=== PATIENT | female | born 1940 | race Caucasian/White ===

== ENCOUNTER → 2018-09-19 | Outpatient (CLI) | payer OTHER | END | disposition home or self-care (01) | LOC: PCVCCLINIC 10:00 | PROVIDERS: ATTEND Internal Medicine | DX: I44.7 Left bundle-branch block, unspecified (principal); E78.5 Hyperlipidemia, unspecified; R94.31 Abnormal electrocardiogram [ECG] [EKG] | CPT/HCPCS: 80061; 93005; G0463 ==

== ENCOUNTER → 2018-09-27 | Outpatient (CLI) | payer OTHER ==
[~2018-09-27] MED LIST: REGADENOSON 0.4 MG/5 ML DISP.SYRIN. IV ONE
--- NOTE | 2018-09-27 09:08 | PCVCIMAG ---
APPROVED REPORT Study performed: 09/27/2018 08:00:15 EXAM: Comprehensive 2D, Doppler, and color-flow Echocardiogram Patient Location: Echo lab Status: routine BSA: 1.63 HR: 64 bpmBP: 142/80 mmHg Rhythm: LBBB Other Information Study Quality: Adequate Indications Abnormal ECG Pre-Op LBBB 2D Dimensions IVSd: 11.23 (7-11mm) LVDd: 50.93 mm PWd: 9.71 (7-11mm) LVDs: 39.80 (25-40mm) Left Atrium: 30.54 (27-40mm) Aortic Root: 30.34 mm LV Single Plane 4CH: 30.46 % LV Single Plane 2CH: 30.13 % Biplane EF: 30.6 % Volumes Left Atrial Volume (Systole) Single Plane 4CH: 40.21 mLSingle Plane 2CH: 66.89 mL LA ESV Index: 33.00 mL/m2 Aortic Valve AoV Peak Chung.: 1.22 m/s AO Peak Gr.: 5.95 mmHgLVOT Max P.41 mmHg LVOT Max V: 0.78 m/s Mitral Valve E/A Ratio: 0.5 MV Decel. Time: 261.63 ms MV E Max Chung.: 0.57 m/s MV A Chung.: 1.05 m/s IVRT: 223.18 ms Pulmonary Valve PV Peak Chung.: 0.64 m/sPV Peak Gr.: 1.64 mmHg Pulmonary Vein P Vein S: 0.24 m/sP Vein A: 0.24 m/s P Vein D: 0.35 m/sP Vein A Dur.: 121.1 msec P Vein S/D Ratio: 0.69 Tricuspid Valve TR Peak Chung.: 2.42 m/s TR Peak Gr.: 23.38 mmHg Left Ventricle The left ventricle is normal size. There is normal LV segmental wall motion. There is normal left ventricular wall thickness. Left ventricular ejection fraction is severely decreased globally. Discordant septal motion probably from LBBB LVEF 30%. Grade I - abnormal relaxation pattern. Right Ventricle The right ventricle is normal size. The right ventricular systolic function is normal. Atria The left atrium size is normal. The right atrium size is normal. Aortic Valve The aortic valve is normal in structure, trileaflet No aortic regurgitation. There is no aortic valvular stenosis. Mitral Valve The mitral valve is normal in structure. Moderate mitral regurgitation. No evidence of mitral valve stenosis. Tricuspid Valve The tricuspid valve is normal in structure. Mild tricuspid regurgitation with PAP of 30 mmHg. Pulmonic Valve The pulmonary valve is normal in structure. Mild pulmonic regurgitation. Great Vessels The aortic root is normal in size. IVC is normal in size and collapses >50% with inspiration. Pericardium There is no pericardial effusion. There is no pleural effusion. <Conclusion> Left ventricular ejection fraction is severely decreased globally. Discordant septal motion probably from LBBB LVEF 30%. Mild diastolic dysfunction The aortic valve is normal in structure, trileaflet No aortic regurgitation or stenosis The mitral valve is normal in structure. Moderate mitral regurgitation. Mild tricuspid regurgitation with pulmonary artery pressure of 30 mmHg. There is no pericardial effusion.
--- NOTE | 2018-09-27 13:15 | PCVCIMAG ---
APPROVED REPORT Imaging Protocol: Rest Tc-99m/Stress Tc-99m 1 day Study performed: 09/27/2018 09:19:04 Indication: Dyspnea, Pre-Operative CV evaluation - knee replacement Patient Location: Out-Patient Stress Nurse: Tiffany Turpin RN [place] Tech:Elvia Lynrebecca [facility] Ht: 5 ft 2 in Wt: 138 lbs BSA: 1.63 m2 HR: 75 bpm BP: 183/73 mmHg BMI: 25.2 Medical History Medical History: Hyperlipidemia Medications: Atorvastatin, levothyroxine Allergies: No known drug allergies Cardiac Risk Factors: Age Pretest Chest Pain Characteristics: No chest pain Resting Data Rest SPECT myocardial perfusion imaging was performed in supine position 45 minutes following the intravenous injection of 10 mCi of Tc-99m Sestamibi. Time of rest injection: 844 Date: 09/27/2018 Administration Route: IV Administration Site: Right AC Pharmacologic Stress Pharmacologic stress test was performed by injecting Regadenoson 0.4 mg IV push over 10-15 seconds immediately followed by the intravenous injection of 31.7 mCi of Tc-99m Sestamibi. Time of stress injection: 949 Date: 09/27/2018 Administration Route: IV Administration Site: Right AC Gated Stress SPECT was performed 45 minutes after stress injection. The images were gated to evaluate regional wall motion and calculate left ventricular ejection fraction. Stress Test Details Stress Test: Pharmacologic stress testing performed using 0.4 mg of regadenoson per 5 mL given IV over 10 seconds. Reason for pharmacologic stress test: physical limitation, pending knee replacement. HRMax Heart Rate (APMHR): 143 bpm Resting HR: 75 bpmTarget HR (85% APMHR): 121 bpm Max HR Achieved: 100 bpm % of APMHR: 69 Recovery HR: 86 bpm BP Resting BP: 183/73 mmHg Recovery BP: 161/71 mmHg ECG Resting ECG: SR with L BBB Stress ECG: SR with L BBB ST Change: Nondiagnostic V-pacing or LBBB Arrhythmia: VPC's Recovery ECG: SR with L BBB Recovery ST Change: Nondiagnostic V-pacing or LBBB Recovery Arrhythmia: None Clinical Reason for Termination: Completed protocol Stress Symptoms: None Exercise duration: 0 min 55 sec Stress ECG Conclusion Clinical: Non-ischemic Non-diagnostic electrocardiogram due to underlying left bundle branch block Study Quality Study: Good Study Data Post stress, the left ventricular ejection was 28%.. SSS: 4 SRS: 5 SDS: 0 TID = 1.00. Perfusion No evidence of stress induced ischemia or prior myocardial infarction. Wall Motion Mild chamber dilatation. Moderately severe decreased left ventricular systolic function. Nuclear Conclusion No evidence of stress induced ischemia or prior myocardial infarction. Post stress, the left ventricular ejection was 28%. No prior study available for comparison. Interpreted by: Jan Lu MD Electronically Approved: 09/27/2018 11:13:23 <Conclusion> Clinical: Non-ischemic Non-diagnostic electrocardiogram due to underlying left bundle branch block
== END | disposition home or self-care (01) ==
LOC: PCVCIMAG 07:49
PROVIDERS: ATTEND Internal Medicine
DX: I08.1 Rheumatic disorders of both mitral and tricuspid valves (principal); I44.7 Left bundle-branch block, unspecified; R94.31 Abnormal electrocardiogram [ECG] [EKG]; R06.09 Other forms of dyspnea
CPT/HCPCS: 78452; 93017; 93306; A9500; J2785

== ENCOUNTER → 2018-12-05 | Outpatient (CLI) | payer OTHER ==
--- NOTE | 2018-12-05 14:16 | PCVCIMAG ---
APPROVED REPORT Study performed: 12/05/2018 13:08:02 EXAM: Comprehensive 2D, Doppler, and color-flow Echocardiogram Patient Location: Echo lab Status: routine BSA: 1.63 HR: 65 bpmBP: 122/80 mmHg Rhythm: NSR Other Information Study Quality: Good Risk Factors: Cardiac Risk Factors: Hyperlipidemia Indications LBBB 2D Dimensions IVSd: 9.96 (7-11mm)LVOT Diam: 19.93 (18-24mm) LVDd: 49.04 mm PWd: 8.26 (7-11mm)Ascending Ao: 29.14 (22-36mm) LVDs: 39.77 (25-40mm) Left Atrium: 30.72 (27-40mm) Aortic Root: 26.78 mm LV Single Plane 4CH: 38.91 % LV Single Plane 2CH: 50.25 % Biplane EF: 41.8 % Volumes Left Atrial Volume (Systole) Single Plane 4CH: 31.32 mLSingle Plane 2CH: 38.61 mL Aortic Valve AoV Peak Chung.: 1.50 m/s AO Peak Gr.: 8.96 mmHgLVOT Max P.36 mmHg LVOT Max V: 0.92 m/s MARLENE Vmax: 1.91 cm2 Mitral Valve E/A Ratio: 0.5 MV Decel. Time: 163.36 ms MV E Max Chung.: 0.69 m/s MV A Chung.: 1.30 m/s TDI E/Lateral E': 17.25E/Medial E': 7.67 Medial E' Chung.: 0.09 m/s Lateral E' Chung.: 0.04 m/s Pulmonary Valve PV Peak Gr.: 2.09 mmHg Pulmonary Vein P Vein S: 0.50 m/sP Vein A: 0.32 m/s P Vein D: 0.33 m/sP Vein A Dur.: 117.6 msec P Vein S/D Ratio: 1.52 Tricuspid Valve TR Peak Chung.: 2.57 m/s TR Peak Gr.: 26.48 mmHg Left Ventricle The left ventricle is normal size. There is global hypokinesis of the left ventricle. There is normal left ventricular wall thickness. Left ventricular systolic function is moderate to severely decreased. Discordant septal motion consistent with left bundle branch block LVEF is 30-35%. Mild diastolic dysfunction is present (impaired relaxation pattern). Right Ventricle The right ventricle is normal size. The right ventricular systolic function is normal. Atria The left atrium size is normal. The right atrium size is normal. Aortic Valve The aortic valve is normal in structure. No aortic regurgitation. There is no aortic valvular stenosis. Mitral Valve The mitral valve is normal in structure. There is no mitral valve regurgitation noted. No evidence of mitral valve stenosis. Tricuspid Valve The tricuspid valve is normal in structure. Mild tricuspid regurgitation. Pulmonary artery pressure is 34mmHg. Pulmonic Valve The pulmonary valve is normal in structure. There is no pulmonic valvular regurgitation. Great Vessels The aortic root is normal in size. IVC is normal in size and collapses >50% with inspiration. Pericardium There is no pericardial effusion. <Conclusion> Left ventricular systolic function is moderate to severely decreased. Discordant septal motion consistent with left bundle branch block LVEF is 30-35%. Mild diastolic dysfunction is present (impaired relaxation pattern). The aortic valve is normal in structure. No aortic regurgitation or stenosis. The mitral valve is normal in structure. No mitral valve regurgitation. Mild tricuspid regurgitation. Pulmonary artery pressure is 34mmHg. There is no pericardial effusion.
== END | disposition home or self-care (01) ==
LOC: PCVCIMAG 12:57
PROVIDERS: ATTEND Internal Medicine
DX: Z01.818 Encounter for other preprocedural examination (principal); I07.1 Rheumatic tricuspid insufficiency; I44.7 Left bundle-branch block, unspecified; I10 Essential (primary) hypertension; E78.5 Hyperlipidemia, unspecified
CPT/HCPCS: 93306

== ENCOUNTER → 2019-01-03 | Outpatient (CLI) | payer OTHER ==
--- NOTE | 2019-01-03 10:37 | PCVCIMAG ---
APPROVED REPORT Study performed: 01/03/2019 08:51:15 EXAM: Comprehensive 2D, Doppler, and color-flow Echocardiogram Patient Location: Echo lab Status: routine BSA: 1.62 HR: 62 bpmBP: 134/80 mmHg Rhythm: NSR Other Information Study Quality: Adequate Indications Dyspnea Cardiomyopathy LBBB 2D Dimensions IVSd: 7.49 (7-11mm)LVOT Diam: 24.01 (18-24mm) LVDd: 58.76 mm PWd: 7.62 (7-11mm)Ascending Ao: 30.23 (22-36mm) LVDs: 46.55 (25-40mm) Left Atrium: 30.40 (27-40mm) Aortic Root: 26.53 mm LV Single Plane 4CH: 31.57 % LV Single Plane 2CH: 31.55 % Biplane EF: 32.0 % Volumes Left Atrial Volume (Systole) Single Plane 4CH: 42.45 mLSingle Plane 2CH: 42.45 mL LA ESV Index: 22.00 mL/m2 Aortic Valve AoV Peak Chung.: 1.16 m/s AO Peak Gr.: 5.41 mmHg Mitral Valve E/A Ratio: 0.5 MV Decel. Time: 159.40 ms MV E Max Chung.: 0.50 m/s MV A Chung.: 1.04 m/s IVRT: 133.79 ms TDI E/Lateral E': 7.14E/Medial E': 8.33 Medial E' Chung.: 0.06 m/s Lateral E' Chung.: 0.07 m/s Pulmonary Valve PV Peak Gr.: 1.60 mmHg Pulmonary Vein P Vein S: 0.45 m/sP Vein A: 0.28 m/s P Vein D: 0.31 m/sP Vein A Dur.: 121.1 msec P Vein S/D Ratio: 1.45 Tricuspid Valve TR Peak Chung.: 2.29 m/s TR Peak Gr.: 20.94 mmHg Left Ventricle Left ventricle is dilated. There is global hypokinesis of the left ventricle. There is normal left ventricular wall thickness. Left ventricular systolic function is moderate to severely decreased. LVEF is 30-35%. Grade I - abnormal relaxation pattern. Right Ventricle The right ventricle is normal size. The right ventricular systolic function is normal. Atria The left atrium size is normal. The right atrium size is normal. Aortic Valve The aortic valve is normal in structure. No aortic regurgitation is present. There is no aortic valvular stenosis. Mitral Valve The mitral valve is normal in structure. Mild mitral regurgitation. No evidence of mitral valve stenosis. Tricuspid Valve The tricuspid valve is normal in structure. Trace tricuspid regurgitation. Pulmonary artery pressure 28mmHg. Pulmonic Valve The pulmonary valve is normal in structure. There is no pulmonic valvular regurgitation. Great Vessels The aortic root is normal in size. IVC is normal in size and collapses >50% with inspiration. Pericardium There is no pericardial effusion. <Conclusion> Left ventricular systolic function is moderate to severely decreased. There is global hypokinesis of the left ventricle. LVEF is 30-35%. Mild diastolic dysfunction The aortic valve is normal in structure. No aortic regurgitation or stenosis The mitral valve is normal in structure. Mild mitral regurgitation. Trace tricuspid regurgitation. Pulmonary artery pressure 28mmHg. There is no pericardial effusion.
== END | disposition home or self-care (01) ==
LOC: PCVCIMAG 08:58
PROVIDERS: ATTEND Internal Medicine
DX: I34.0 Nonrheumatic mitral (valve) insufficiency (principal); R06.09 Other forms of dyspnea; I42.9 Cardiomyopathy, unspecified; I44.7 Left bundle-branch block, unspecified
CPT/HCPCS: 93306

== ENCOUNTER → 2019-02-26 | Outpatient (CLI) | payer OTHER | END | disposition home or self-care (01) | LOC: PCVCCLINIC 13:00 | PROVIDERS: ATTEND Internal Medicine | DX: I42.0 Dilated cardiomyopathy (principal); I11.0 Hypertensive heart disease with heart failure; I50.22 Chronic systolic (congestive) heart failure; I44.7 Left bundle-branch block, unspecified; E78.5 Hyperlipidemia, unspecified; E03.9 Hypothyroidism, unspecified; Z95.810 Presence of automatic (implantable) cardiac defibrillator; Z90.49 Acquired absence of other specified parts of digestive tract; Z79.899 Other long term (current) drug therapy | CPT/HCPCS: 36415; 80061; 93005; G0463 ==

== ENCOUNTER → 2019-09-03 | Outpatient (CLI) | payer OTHER ==
--- NOTE | 2019-09-03 12:29 | PCVCIMAG ---
APPROVED REPORT Study performed: 09/03/2019 09:45:31 EXAM: Comprehensive 2D, Doppler, and color-flow Echocardiogram Patient Location: Echo lab Status: routine BSA: 1.64 HR: 60 bpmBP: 120/64 mmHg Rhythm: Pacemaker Other Information Study Quality: Adequate Indications Bi-ventricular pacemaker, LBBB, dilated cardiomyopathy 2D Dimensions IVSd: 11.52 (7-11mm) LVDd: 49.95 mm PWd: 8.95 (7-11mm)Ascending Ao: 30.99 (22-36mm) LVDs: 39.27 (25-40mm) Left Atrium: 35.05 (27-40mm) Aortic Root: 28.41 mm LV Single Plane 4CH: 47.85 % LV Single Plane 2CH: 47.07 % Biplane EF: 49.6 % Volumes Left Atrial Volume (Systole) Single Plane 4CH: 45.50 mLSingle Plane 2CH: 58.48 mL LA ESV Index: 33.00 mL/m2 Aortic Valve AoV Peak Chung.: 1.21 m/s AO Peak Gr.: 5.88 mmHgLVOT Max P.25 mmHg LVOT Max V: 0.75 m/s Mitral Valve E/A Ratio: 0.8 MV Decel. Time: 320.15 ms MV E Max Chung.: 0.66 m/s MV A Chung.: 0.88 m/s IVRT: 152.25 ms Pulmonary Valve PV Peak Chung.: 0.67 m/sPV Peak Gr.: 1.81 mmHg Pulmonary Vein P Vein S: 0.27 m/sP Vein A: 0.29 m/s P Vein D: 0.36 m/sP Vein A Dur.: 145.3 msec P Vein S/D Ratio: 0.75 Tricuspid Valve TR Peak Chung.: 2.50 m/s TR Peak Gr.: 25.03 mmHg Left Ventricle The left ventricle is normal size. There is normal LV segmental wall motion. There is normal left ventricular wall thickness. Left ventricular systolic function is at the lower limits of normal LVEF is 45-50%. Mild diastolic dysfunction is present (impaired relaxation pattern). Right Ventricle The right ventricle is normal size. The right ventricular systolic function is normal. Pacemaker lead is present in the right ventricle. Atria The left atrium size is normal. The right atrium size is normal. Pacemaker lead is present in the right atrium. Aortic Valve The aortic valve is trileaflet, minimally sclerotic Trace aortic regurgitation. There is no aortic valvular stenosis. Mitral Valve The mitral valve is normal in structure. Moderate mitral regurgitation. No evidence of mitral valve stenosis. Tricuspid Valve The tricuspid valve is normal in structure. Mild tricuspid regurgitation with PAP of 32 mmHg. Pulmonic Valve The pulmonary valve is normal in structure. There is mild pulmonic valvular regurgitation. Great Vessels The aortic root is normal in size. IVC is normal in size and collapses >50% with inspiration. Pericardium There is no pericardial effusion. There is no pleural effusion. <Conclusion> Left ventricular systolic function is at the lower limits of normal LVEF is 45-50%. Mild diastolic dysfunction The aortic valve is trileaflet, minimally sclerotic. Trace aortic regurgitation, no stenosis. The mitral valve is normal in structure. Moderate mitral regurgitation. Mild tricuspid regurgitation with pulmonary artery pressure of 32 mmHg. There is no pericardial effusion.
== END | disposition home or self-care (01) ==
LOC: PCVCIMAG 09:47
PROVIDERS: ATTEND Internal Medicine
DX: I08.1 Rheumatic disorders of both mitral and tricuspid valves (principal); I44.7 Left bundle-branch block, unspecified; I42.0 Dilated cardiomyopathy
CPT/HCPCS: 93306

== ENCOUNTER → 2019-10-06 | Outpatient (CLI) | payer OTHER | END | disposition home or self-care (01) | LOC: PCVCCLINIC 12:09 | PROVIDERS: ATTEND Internal Medicine | DX: I42.0 Dilated cardiomyopathy (principal); I10 Essential (primary) hypertension; E78.5 Hyperlipidemia, unspecified; E03.9 Hypothyroidism, unspecified; Z90.49 Acquired absence of other specified parts of digestive tract; Z96.651 Presence of right artificial knee joint; Z90.09 Acquired absence of other part of head and neck; Z79.899 Other long term (current) drug therapy; Z95.810 Presence of automatic (implantable) cardiac defibrillator | CPT/HCPCS: 93005; 93284; G0463 ==